=== PATIENT | male | born 2000 | race Caucasian/White ===

== ENCOUNTER 2023-05-17 11:17 | Emergency (ER) | payer OTHER ==
[~2023-05-17] VITALS: Ht 165.1 cm; Wt 95.3 kg
[2023-05-17 11:20] VITALS: BP_SYST 117; PULSE 120; RESP 20; TEMP 98.3; O2SAT 98
[2023-05-17] MEDS ORDERED: NACL 0.9% 1,000 ML IV ONE (11:45)
[2023-05-17 11:49] LABS: BASOPHILS % (AUTO) 0.3 % (0.0-2.0); EOSINOPHILS # (AUTO) 0.1 K/uL (0.0-0.4); EOSINOPHILS % (AUTO) 0.6 % (0.0-4.0); HEMATOCRIT 44.9 % (36-54); HEMOGLOBIN 15.2 g/dL (14.0-18.0); LYMPHOCYTES # (AUTO) 3.4 K/uL (1.0-5.5); LYMPHOCYTES % (AUTO) 34.8 % (20.5-51.5); MEAN CORPUSCULAR HEMOGLOBIN 29 pg (27-31); MEAN CORPUSCULAR HGB CONC 34 % (32-36); MEAN CORPUSCULAR VOLUME 86 fL (79.0-98.0); MONOCYTES # (AUTO) 0.5 K/uL (0.0-1.0); MONOCYTES % (AUTO) 5.7 % (1.7-9.3); NEUTROPHILS # (AUTO) 5.7 K/uL (1.8-7.7); NEUTROPHILS % (AUTO) 58.6 % (40.0-70.0); PLATELET COUNT (AUTO) 318 K/uL (130-430); RED BLOOD CELL COUNT(AUTO) 5.23 MIL/uL (4.2-6.2); RED CELL DISTRIBUTION WIDTH 12.4 % (9.0-15.0); WHITE BLOOD COUNT (AUTO) 9.7 K/uL (4.8-10.8)
[2023-05-17 12:10] LABS: CALCIUM 8.7 mg/dL (8.4-11.0); CREATININE 0.95 mg/dL (0.55-1.30); POTASSIUM 3.6 mmol/L (3.5-5.1)
[2023-05-17 14:21] VITALS: BP_SYST 126; RESP 20; TEMP 98.3
[2023-05-17 14:22] VITALS: PULSE 93; O2SAT 98
== END 2023-05-17 14:43 | disposition home or self-care (01) ==
LOC: SED 11:17
DX: S00.511A Abrasion of lip, initial encounter (principal); S00.31XA Abrasion of nose, initial encounter; R56.9 Unspecified convulsions; E11.9 Type 2 diabetes mellitus without complications; Z79.899 Other long term (current) drug therapy; X58.XXXA Exposure to other specified factors, initial encounter; Y93.89 Activity, other specified; Y92.89 Other specified places as the place of occurrence of the external cause; Y99.8 Other external cause status
CPT/HCPCS: 99284; 70450; 96360; 80048; 85025; 36415; 72125; 76376; J7030